=== PATIENT | female | born 1990 | race Caucasian/White ===

== ENCOUNTER 2018-06-23 05:14 | Inpatient (IN) | payer BC ==
[2018-06-23] MEDS: Lactated Ringers 1,000 ML IV SCH ×3 (06:00→07:50)
[2018-06-23] MEDS ORDERED: Sodium Chloride 0.9% 10 ML Syringe FLUSH PRN (06:06)
[2018-06-23] MEDS ORDERED: Citric Acid/Sodium Citrate Solution 30 ML Cup PO ONE (06:06)
[2018-06-23] MEDS ORDERED: ceFAZolin 2 GM in Premix Bag 1 BAG IV ONE (06:06)
[2018-06-23] MEDS ORDERED: Oxytocin/0.9 % Sodium Chloride 30 UNIT/500 ML BAG IV SCH (06:15)
--- NOTE | 2018-06-23 07:27 | PCM.PREANE ---
Preanesthetic Assessment - Anesthesia/Transfusion/Family Hx Anesthesia History: No Prior Anesthesia Family History of Anesthesia Reaction: No Transfusion History: No Prior Transfusion(s) - Review of Systems General: No Symptoms Pulmonary: No Symptoms Cardiovascular: No Symptoms Gastrointestinal: No Symptoms Neurological: No Symptoms Other: Reports: None - Physical Assessment NPO Status Date: 06/22/18 Height: 5 ft Weight: 81.193 kg ASA Class: 2 Mental Status: Alert & Oriented x3 Airway Class: Mallampati = 1 Dentition: Reports: Normal Dentition ROM/Head Extension: Full Lungs: Clear to Auscultation, Normal Respiratory Effort Cardiovascular: Regular Rate, Regular Rhythm - Lab Values: Laboratory Last Values WBC 9.04 K/uL (4.0-11.0) 06/22/18 10:20 RBC 4.15 M/uL (4.30-5.90) L 06/22/18 10:20 Hgb 12.7 g/dL (12.0-16.0) 06/22/18 10:20 Hct 36.8 % (36.0-46.0) 06/22/18 10:20 MCV 88.7 fL (80.0-98.0) 06/22/18 10:20 MCH 30.6 pg (27.0-32.0) 06/22/18 10:20 MCHC 34.5 g/dL (31.0-37.0) 06/22/18 10:20 RDW Std Deviation 45.4 fl (28.0-62.0) 06/22/18 10:20 RDW Coeff of Baldemar 14 % (11.0-15.0) 06/22/18 10:20 Plt Count 223 K/uL (150-400) 06/22/18 10:20 MPV 11.00 fL (7.40-12.00) 06/22/18 10:20 Nucleated RBC % 0.0 /100WBC 06/22/18 10:20 Nucleated RBCs # 0 K/uL 06/22/18 10:20 Blood Type B POSITIVE 06/22/18 10:20 Antibody Screen NEGATIVE 06/22/18 10:20 - Allergies Allergies/Adverse Reactions: Allergies Allergy/AdvReac Type Severity Reaction Status Date / Time No Known Allergies Allergy Verified 06/19/18 10:22 - Blood Blood Available: Yes - Anesthesia Plan Pre-Op Medication Ordered: Antacids - Acknowledgements Anesthesia Type Planned: Spinal Pt an Appropriate Candidate for the Planned Anesthesia: Yes Alternatives and Risks of Anesthesia Discussed w Pt/Guardian: Yes Pt/Guardian Understands and Agrees with Anesthesia Plan: Yes Additional Comments: PMH: term , , breech, pligohydramnios, PCOS, migraine PLAN: spinal with intrathecal duramorph PreAnesthesia Questionnaire - Past Health History Medical/Surgical History: Denies Medical/Surgical History HEENT History: Reports: Other (See Below) Other HEENT History: wears contacts/glasses Gastrointestinal History: Reports: Other (See Below) Other Gastrointestinal History: occasional heartburn with - Past Surgical History Head Surgeries/Procedures: Reports: None GI Surgical History: Reports: None - SUBSTANCE USE Smoking Status *Q: Never Smoker Tobacco Use Within Last Twelve Months: No Second Hand Smoke Exposure: No Recreational Drug Use History: No - HOME MEDS Home Medications: Home Meds Magnesium Oxide 250 mg PO DAILY 06/19/18 [History] PNV95/Ferrous Fumarate/FA [ Vitamin Tablet] 1 tab PO DAILY 06/19/18 [ History] - CURRENT (IN HOUSE) MEDS Current Meds: Current Medications Lactated Ringer's (Ringers, Lactated) 1,000 mls @ 500 mls/hr IV BOLUS [facility] Last Admin: 06/23/18 06:39 Dose: 999 mls/hr Oxytocin/Sodium Chloride (Oxytocin 30 Unit/500 Ml-Ns) 30 unit in 500 mls @ 250 mls/hr IV TITRATE [facility] Sodium Chloride (Saline Flush) 10 ml FLUSH ASDIRECTED PRN PRN Reason: Keep Vein Open Last Admin: 06/23/18 06:39 Dose: 10 ml Discontinued Medications Citric Acid/Sodium Citrate (Bicitra Solution) 30 ml PO ONETIME ONE Stop: 06/23/18 06:07 Last Admin: 06/23/18 07:19 Dose: 30 ml Cefazolin Sodium/Dextrose 2 gm (/ Premix) 50 mls @ 100 mls/hr IV ONETIME ONE Stop: 06/23/18 06:35
[2018-06-23] MEDS ORDERED: Oxytocin 10 Units/1 ML SDV ONE (08:11)
[2018-06-23] MEDS ORDERED: ePHEDrine 50 MG/ML SDV ONE (08:11)
[2018-06-23] MEDS ORDERED: Phenylephrine/Normal Saline 100 MCG/ML 10 ML Syringe ONE (08:11)
[2018-06-23] MEDS ORDERED: Octyl 2-Cyanoacrylate 1 Tube ONE (08:36)
[2018-06-23] MEDS ORDERED: Morphine PF 10 MG/10 ML SDV ONE (08:37)
--- NOTE | 2018-06-23 08:52 | PCM.OPNOTE ---
- General Post-Op/Procedure Note Date of Surgery/Procedure: 06/23/18 Operative Procedure(s): primary low transverse Findings: Liveborn male 01/12 2500 grams, katlin breech, normal uterus, tubes and ovaries. Pre Op Diagnosis: 39 weeks, katlin breech presentation, IVF , desires cord blood collection Post-Op Diagnosis: Same Anesthesia Technique: Spinal Primary Surgeon: Annia Wilson Anesthesia Provider: Christine Curtis Pathology: none Fluid Replacement, Intraop: 1,300 Output, Urine Amount: 700 EBL in mLs: 400 Complications: None Known Condition: Good
[2018-06-23] MEDS ORDERED: Ondansetron 4 MG/2 ML SDV IVPUSH PRN (08:54)
[2018-06-23] MEDS ORDERED: Acetaminophen/oxyCODONE 325-5 MG Tab PO PRN (08:54)
[2018-06-23] MEDS ORDERED: Bisacodyl 10 MG Supp RECTAL PRN (08:54)
[2018-06-23] MEDS ORDERED: Lanolin 100% Cream 7 GM Tube TOP PRN (08:54)
[2018-06-23] MEDS ORDERED: diphenhydrAMINE 50 MG/ML SDV IVPUSH PRN (08:54)
[2018-06-23] MEDS ORDERED: Lactated Ringers 1,000 ML IV SCH (09:00)
[2018-06-23] MEDS: Ketorolac 30 MG/ML SDV IVPUSH SCH ×3 (09:12→21:03)
--- NOTE | 2018-06-23 09:45 | PCM.POSTAN ---
POST ANESTHESIA ASSESSMENT - MENTAL STATUS Mental Status: Alert, Oriented - RESPIRATORY Respiratory Status: Respiratory Rate WNL, Airway Patent, O2 Saturation Stable - CARDIOVASCULAR CV Status: Pulse Rate WNL, Blood Pressure Stable - GASTROINTESTINAL GI Status: No Symptoms - POST OP HYDRATION Hydration Status: Adequate & Stable
[2018-06-23] MEDS: Docusate Sodium 100 MG Cap PO SCH ×2 (11:01→21:02)
--- NOTE | 2018-06-23 13:47 | OR ---
SURGEON: Annia Wilson M.D. DATE OF PROCEDURE: 06/23/2018 PREOPERATIVE DIAGNOSES: 1. 39 weeks' intrauterine . 2. Breech presentation. 3. Declines external version. 4. In vitro . 5. Desires cord blood collection. POSTOPERATIVE DIAGNOSES: 1. 39 weeks' intrauterine . 2. Breech presentation. 3. Declines external version. 4. In vitro . 5. Desires cord blood collection. PROCEDURE: Primary low-transverse section with umbilical cord blood collection for cord blood banking. ANESTHESIA: Spinal. ESTIMATED BLOOD LOSS: 400 mL. FINDINGS: Liveborn male. scores were 9 and 9, weighing 2500 g. Normal-appearing uterus, tubes, and ovaries. COMPLICATIONS: None known. DISPOSITION: Stable to recovery. BRIEF HISTORY: This is a 28-year-old female, G1, P0. She is at 39 weeks' gestation. She has been followed closely over the past month with small for gestational age, borderline oligohydramnios, and breech presentation. Due to the oligohydramnios, she was not a candidate for external version. Fluid improved, but she still declined external version and therefore presents for primary delivery with risks discussed including bleeding, infection, injury to bowel, bladder, blood vessels, ureters, other organs, risk of thromboembolic event, and risk of anesthesia. Understanding all these risks, she does desire to proceed. DESCRIPTION OF PROCEDURE: With the patient in left tilt position, under adequate spinal analgesia, the abdomen was prepped with chlorhexidine and draped in usual fashion for abdominal surgery. SCDs were in place. Pina catheter had been placed and she received 2 g of Ancef IV. After documentation of adequate analgesia, a transverse curvilinear incision was made 2 cm cephalad from the pubic symphysis, carried through subcutaneous tissue to the fascia, which was scored transversely in the midline. The fascial incision was extended using curved Javier scissors. The fascia was elevated from the underlying rectus muscles using curved Javier scissors, and the rectus muscles were in the midline using blunt dissection. The peritoneum was entered bluntly, and the Hero O retractor was placed. The visceroperitoneum over the lower uterine segment was incised to develop an adequate bladder flap. A transverse curvilinear incision was made over the lower uterine segment with a scalpel, and the amniotic cavity was entered with note of very minimal fluid. The incision was extended using blunt dissection. The breech was delivered via the uterine incision. With subsequent delivery of the 's body, the arms were swept across the chest. The head was flexed and delivered without any difficulty. The was bulb suctioned by nose and mouth. Cord was clamped x2 and cut, and the was handed to the nurse in attendance at delivery. The infant was a live- born male, scores 9 and 9, weighing 2500 g. Cord blood was collected for cord ABGs as well as routine cord blood sampling, and the cord was clamped above the site, and the cord blood collection kit was then opened sterilely and needle was inserted. The bag was dropped to the floor, and the cord blood was collected until there was no further blood in the umbilical vein. The needle was removed and covered, and passed off to the nurse for processing of the cord blood. The placenta by that time had released and was removed. The uterus was cleaned with dry laparotomy tape. The cervix was opened with a ring forceps. The uterine incision was closed with a running lock suture of 0 Polysorb, followed by an imbricating layer of 0 Polysorb. The posterior cul-de-sac pericolic gutters were cleaned with a wet laparotomy tape. Tubes and ovaries were inspected and were hemostatic. The uterine incision was inspected and was hemostatic. The Hero O retractor was removed. A final inspection revealed the incision to be completely hemostatic. Therefore, the rectus muscle and peritoneum were loosely approximated in the midline using a running mattress suture of 0 Polysorb. The posterior aspect of the fascia was inspected and was hemostatic. The fascial incision was closed with a running suture of 0 Polysorb. The subcutaneous tissue was irrigated. Any areas of bleeding that were noted were cauterized. The skin was closed with a running subcuticular suture of 3-0 Monocryl. Final sponge, needle, and instrument counts were reported as correct. There were no known complications. Dermabond was placed over the incision prior to dressing. The mother was transferred to recovery in good condition. The infant is in nursery in good condition. CARLEE / SUMA /[id number]
[2018-06-24] MEDS: Ketorolac 30 MG/ML SDV IVPUSH SCH ×2 (02:59→09:22)
--- NOTE | 2018-06-24 05:59 | PCM48HPAN ---
Post Anesthesia Note - EVALUATION WITHIN 48HRS OF ANESTHETIC Vital Signs in Normal Range: Yes Patient Participated in Evaluation: Yes Respiratory Function Stable: Yes Airway Patent: Yes Cardiovascular Function Stable: Yes Hydration Status Stable: Yes Pain Control Satisfactory: Yes Nausea and Vomiting Control Satisfactory: Yes Mental Status Recovered: Yes Resp Rate: 14
--- NOTE | 2018-06-24 08:18 | PCM.PNPP ---
<Татьяна Driver - Last Filed: 06/24/18 08:15> - General Info Date of Service: 06/24/18 Functional Status: Reports: Pain Controlled, Tolerating Diet, Ambulating, Urinating - Review of Systems General: Denies: Fever, Weakness, Fatigue Pulmonary: Denies: Shortness of Breath, Pleuritic Chest Pain, Cough Cardiovascular: Denies: Chest Pain, Palpitations, Dyspnea on Exertion Gastrointestinal: Denies: Abdominal Pain Genitourinary: Denies: Dysuria - General Info Date of Service: 06/24/18 - Patient Data Vital Signs - Most Recent: Last Vital Signs Temp 36.7 C 06/24/18 04:00 Pulse 103 H 06/24/18 06:00 Resp 17 06/24/18 06:00 BP 126/71 06/24/18 04:00 Pulse Ox 95 06/24/18 06:00 Weight - Most Recent: 179 lb I&O - Last 24 Hours: Intake & Output 06/23/18 06/24/18 06/24/18 22:59 06:59 14:59 Intake Total 1732 Output Total 250 2400 Balance 1482 -2400 Lab Results - Last 24 Hours: Laboratory Results - last 24 hr 06/23/18 06/24/18 Range/Units 08:14 05:35 Hgb 10.6 L (12.0-16.0) g/dL Hct 31.2 L (36.0-46.0) % Cord ABG pH 7.243 (7.18-7.38) Cord ABG Base Excess -4 (-10--2) Cord VBG pH 7.275 (7.25-7.45) Cord VBG Base Excess -7 (-10--2) Med Orders - Current: Current Medications Bisacodyl (Dulcolax) 10 mg RECTAL ONETIME PRN PRN Reason: Constipation Diphenhydramine HCl (Benadryl) 25 mg IVPUSH Q6H PRN PRN Reason: Itching or Nausea Docusate Sodium (Colace) 100 mg PO BID [facility]ON[facility] Last Admin: 06/23/18 21:02 Dose: 100 mg Emollient Ointment (Lansinoh Hpa) 0 gm TOP ASDIRECTED PRN PRN Reason: Sore Nipples Lactated Ringer's (Ringers, Lactated) 1,000 mls @ 125 mls/hr IV ASDIRECTED [facility] Last Admin: 06/23/18 12:48 Dose: 125 mls/hr Ibuprofen (Motrin) 800 mg PO Q8H PRN PRN Reason: mild pain or fever Ketorolac Tromethamine (Toradol) 30 mg IVPUSH Q6H [facility] Stop: 06/24/18 09:01 Last Admin: 06/24/18 02:59 Dose: 30 mg Ondansetron HCl (Zofran) 4 mg IVPUSH Q4H PRN PRN Reason: Nausea/Vomiting Oxycodone/Acetaminophen (Percocet 325-5 Mg) 1 tab PO Q4H PRN PRN Reason: Pain (moderate 4-6) Oxycodone/Acetaminophen (Percocet 325-5 Mg) 2 tab PO Q4H PRN PRN Reason: Pain (moderate 4-6) Discontinued Medications Citric Acid/Sodium Citrate (Bicitra Solution) 30 ml PO ONETIME ONE Stop: 06/23/18 06:07 Last Admin: 06/23/18 07:19 Dose: 30 ml Ephedrine Sulfate (Ephedrine Sulfate) Confirm Administered Dose 50 mg .ROUTE .STK-MED ONE Stop: 06/23/18 08:12 Cefazolin Sodium/Dextrose 2 gm (/ Premix) 50 mls @ 100 mls/hr IV ONETIME ONE Stop: 06/23/18 06:35 Lactated Ringer's (Ringers, Lactated) 1,000 mls @ 500 mls/hr IV BOLUS [facility] Last Admin: 06/23/18 07:50 Dose: 999 mls/hr Oxytocin/Sodium Chloride (Oxytocin 30 Unit/500 Ml-Ns) 30 unit in 500 mls @ 250 mls/hr IV TITRATE [facility] Morphine Sulfate (Duramorph Pf) Confirm Administered Dose 10 mg .ROUTE .STK-MED ONE Stop: 06/23/18 08:38 Octyl Cyanoacrylate (Dermabond Advance) Confirm Administered Dose 1 applic .ROUTE .STK-MED ONE Stop: 06/23/18 08:37 Oxytocin (Pitocin) Confirm Administered Dose 30 unit .ROUTE .STK-MED ONE Stop: 06/23/18 08:12 Phenylephrine HCl (Phenylephrine In Ns 100 Mcg/Ml) Confirm Administered Dose 1 mg .ROUTE .STK-MED ONE Stop: 06/23/18 08:12 Sodium Chloride (Saline Flush) 10 ml FLUSH ASDIRECTED PRN PRN Reason: Keep Vein Open Last Admin: 06/23/18 06:39 Dose: 10 ml - Interaction Infant Disposition, : to Nursery Infant Feeding: Breastfed Infant; Nursed Well, Encouraged to Breastfeed Support Person: - Recovery Exam Fundal Tone: Firm Fundal Level: 1 Fingerbreadths Below Umbilicus Fundal Placement: Midline Lochia Amount: Small Lochia Color: Rubra/Red Perineum Description: Intact, Minimal Bruising/Swelling Episiotomy/Laceration: None Bladder Status: Indwelling Catheter in Place Urinary Elimination: Indwelling Catheter - Exam General: Alert, Oriented Neck: Supple Lungs: Clear to Auscultation, Normal Respiratory Effort Cardiovascular: Regular Rate, Regular Rhythm GI/Abdominal Exam: Normal Bowel Sounds, Soft, Non-Tender, No Distention, No Mass Skin: Warm, Dry, Intact - Problem List Review Problem List Initiated/Reviewed/Updated: Yes - Assessment Assessment:: POD #1 s/p PLTCS for Breech. Minimal pain and lochia. Breast feeding well. Aim for discharge home tomorrow. - Plan Plan:: Continue routine post-op cares. Encouraged to shower and ambulate halls. <Cathy King - Last Filed: 06/24/18 09:02> - Patient Data Vital Signs - Most Recent: Last Vital Signs Temp 36.7 C 06/24/18 04:00 Pulse 103 H 06/24/18 06:00 Resp 17 06/24/18 06:00 BP 126/71 06/24/18 04:00 Pulse Ox 95 06/24/18 06:00 I&O - Last 24 Hours: Intake & Output 06/23/18 06/24/18 06/24/18 22:59 06:59 14:59 Intake Total 1732 Output Total 250 2400 Balance 1482 -2400 Lab Results - Last 24 Hours: Laboratory Results - last 24 hr 06/23/18 06/24/18 Range/Units 08:14 05:35 Hgb 10.6 L (12.0-16.0) g/dL Hct 31.2 L (36.0-46.0) % Cord ABG pH 7.243 (7.18-7.38) Cord ABG Base Excess -4 (-10--2) Cord VBG pH 7.275 (7.25-7.45) Cord VBG Base Excess -7 (-10--2) Med Orders - Current: Current Medications Bisacodyl (Dulcolax) 10 mg RECTAL ONETIME PRN PRN Reason: Constipation Diphenhydramine HCl (Benadryl) 25 mg IVPUSH Q6H PRN PRN Reason: Itching or Nausea Docusate Sodium (Colace) 100 mg PO BID [facility] Last Admin: 06/23/18 21:02 Dose: 100 mg Emollient Ointment (Lansinoh Hpa) 0 gm TOP ASDIRECTED PRN PRN Reason: Sore Nipples Lactated Ringer's (Ringers, Lactated) 1,000 mls @ 125 mls/hr IV ASDIRECTED [facility] Last Admin: 06/23/18 12:48 Dose: 125 mls/hr Ibuprofen (Motrin) 800 mg PO Q8H PRN PRN Reason: mild pain or fever Ondansetron HCl (Zofran) 4 mg IVPUSH Q4H PRN PRN Reason: Nausea/Vomiting Oxycodone/Acetaminophen (Percocet 325-5 Mg) 1 tab PO Q4H PRN PRN Reason: Pain (moderate 4-6) Oxycodone/Acetaminophen (Percocet 325-5 Mg) 2 tab PO Q4H PRN PRN Reason: Pain (moderate 4-6) Discontinued Medications Citric Acid/Sodium Citrate (Bicitra Solution) 30 ml PO ONETIME ONE Stop: 06/23/18 06:07 Last Admin: 06/23/18 07:19 Dose: 30 ml Ephedrine Sulfate (Ephedrine Sulfate) Confirm Administered Dose 50 mg .ROUTE .STK-MED ONE Stop: 06/23/18 08:12 Cefazolin Sodium/Dextrose 2 gm (/ Premix) 50 mls @ 100 mls/hr IV ONETIME ONE Stop: 06/23/18 06:35 Lactated Ringer's (Ringers, Lactated) 1,000 mls @ 500 mls/hr IV BOLUS [facility] Last Admin: 06/23/18 07:50 Dose: 999 mls/hr Oxytocin/Sodium Chloride (Oxytocin 30 Unit/500 Ml-Ns) 30 unit in 500 mls @ 250 mls/hr IV TITRATE [facility] Ketorolac Tromethamine (Toradol) 30 mg IVPUSH Q6H [facility] Stop: 06/24/18 09:01 Last Admin: 06/24/18 02:59 Dose: 30 mg Morphine Sulfate (Duramorph Pf) Confirm Administered Dose 10 mg .ROUTE .STK-MED ONE Stop: 06/23/18 08:38 Octyl Cyanoacrylate (Dermabond Advance) Confirm Administered Dose 1 applic .ROUTE .STK-MED ONE Stop: 06/23/18 08:37 Oxytocin (Pitocin) Confirm Administered Dose 30 unit .ROUTE .STK-MED ONE Stop: 06/23/18 08:12 Phenylephrine HCl (Phenylephrine In Ns 100 Mcg/Ml) Confirm Administered Dose 1 mg .ROUTE .STK-MED ONE Stop: 06/23/18 08:12 Sodium Chloride (Saline Flush) 10 ml FLUSH ASDIRECTED PRN PRN Reason: Keep Vein Open Last Admin: 06/23/18 06:39 Dose: 10 ml - Assessment Assessment:: Patient seen independently- agree with above - Plan Plan:: Aim for discharge tomorrow
[2018-06-24] MEDS: Docusate Sodium 100 MG Cap PO SCH ×2 (09:23→20:54)
[2018-06-24] MEDS: Ibuprofen 800 MG Tab PO PRN (16:53)
[2018-06-24] MEDS: Acetaminophen/oxyCODONE 325-5 MG Tab PO PRN (20:53)
[2018-06-25] MEDS: Ibuprofen 800 MG Tab PO PRN (02:02)
[2018-06-25] MEDS: Acetaminophen/oxyCODONE 325-5 MG Tab PO PRN (08:39)
[2018-06-25] MEDS: Docusate Sodium 100 MG Cap PO SCH (08:39)
--- NOTE | 2018-06-25 08:42 | PCM.PNPP ---
- General Info Date of Service: 06/25/18 Functional Status: Reports: Pain Controlled, Tolerating Diet, Ambulating, Urinating - Review of Systems General: Reports: No Symptoms HEENT: Reports: No Symptoms Pulmonary: Reports: No Symptoms Cardiovascular: Reports: No Symptoms Gastrointestinal: Reports: No Symptoms Genitourinary: Reports: No Symptoms Musculoskeletal: Reports: No Symptoms Skin: Reports: No Symptoms Neurological: Reports: No Symptoms Psychiatric: Reports: No Symptoms - Patient Data Vital Signs - Most Recent: Last Vital Signs Temp 37.1 C 06/25/18 04:10 Pulse 96 06/25/18 04:10 Resp 16 06/25/18 04:10 BP 131/91 H 06/25/18 04:10 Pulse Ox 97 06/25/18 04:10 Weight - Most Recent: 81.193 kg Med Orders - Current: Current Medications Bisacodyl (Dulcolax) 10 mg RECTAL ONETIME PRN PRN Reason: Constipation Diphenhydramine HCl (Benadryl) 25 mg IVPUSH Q6H PRN PRN Reason: Itching or Nausea Docusate Sodium (Colace) 100 mg PO BID [facility] Last Admin: 06/24/18 20:54 Dose: 100 mg Emollient Ointment (Lansinoh Hpa) 0 gm TOP ASDIRECTED PRN PRN Reason: Sore Nipples Lactated Ringer's (Ringers, Lactated) 1,000 mls @ 125 mls/hr IV ASDIRECTED [facility] Last Admin: 06/23/18 12:48 Dose: 125 mls/hr Ibuprofen (Motrin) 800 mg PO Q8H PRN PRN Reason: mild pain or fever Last Admin: 06/25/18 02:02 Dose: 800 mg Ondansetron HCl (Zofran) 4 mg IVPUSH Q4H PRN PRN Reason: Nausea/Vomiting Oxycodone/Acetaminophen (Percocet 325-5 Mg) 1 tab PO Q4H PRN PRN Reason: Pain (moderate 4-6) Last Admin: 06/24/18 20:53 Dose: 1 tab Oxycodone/Acetaminophen (Percocet 325-5 Mg) 2 tab PO Q4H PRN PRN Reason: Pain (moderate 4-6) Discontinued Medications Citric Acid/Sodium Citrate (Bicitra Solution) 30 ml PO ONETIME ONE Stop: 06/23/18 06:07 Last Admin: 06/23/18 07:19 Dose: 30 ml Ephedrine Sulfate (Ephedrine Sulfate) Confirm Administered Dose 50 mg .ROUTE .STK-MED ONE Stop: 06/23/18 08:12 Cefazolin Sodium/Dextrose 2 gm (/ Premix) 50 mls @ 100 mls/hr IV ONETIME ONE Stop: 06/23/18 06:35 Lactated Ringer's (Ringers, Lactated) 1,000 mls @ 500 mls/hr IV BOLUS [facility] Last Admin: 06/23/18 07:50 Dose: 999 mls/hr Oxytocin/Sodium Chloride (Oxytocin 30 Unit/500 Ml-Ns) 30 unit in 500 mls @ 250 mls/hr IV TITRATE [facility] Ketorolac Tromethamine (Toradol) 30 mg IVPUSH Q6H [facility] Stop: 06/24/18 09:01 Last Admin: 06/24/18 09:22 Dose: 30 mg Morphine Sulfate (Duramorph Pf) Confirm Administered Dose 10 mg .ROUTE .STK-MED ONE Stop: 06/23/18 08:38 Octyl Cyanoacrylate (Dermabond Advance) Confirm Administered Dose 1 applic .ROUTE .STK-MED ONE Stop: 06/23/18 08:37 Oxytocin (Pitocin) Confirm Administered Dose 30 unit .ROUTE .STK-MED ONE Stop: 06/23/18 08:12 Phenylephrine HCl (Phenylephrine In Ns 100 Mcg/Ml) Confirm Administered Dose 1 mg .ROUTE .STK-MED ONE Stop: 06/23/18 08:12 Sodium Chloride (Saline Flush) 10 ml FLUSH ASDIRECTED PRN PRN Reason: Keep Vein Open Last Admin: 06/23/18 06:39 Dose: 10 ml - Interaction Disposition, : to Nursery Infant Feeding: Breastfed ; Nursed Well, Encouraged to Breastfeed Support Person: - Recovery Exam Fundal Tone: Firm Fundal Level: 1 Fingerbreadths Below Umbilicus Fundal Placement: Midline Lochia Amount: Scant Lochia Color: Rubra/Red Perineum Description: Intact, Minimal Bruising/Swelling Episiotomy/Laceration: None Bladder Status: Voiding Urinary Elimination: Voided - Exam General: Alert, Oriented GI/Abdominal Exam: Soft, Non-Tender Extremities: Normal Inspection, Non-Tender, Normal Capillary Refill. No: No Pedal Edema (trace) Skin: Warm, Dry, Intact Wound/Incisions: Healing Well Neurological: No New Focal Deficit - Problem List & Annotations (1) Breech, katlin SNOMED Code(s): 42118042 Code(s): O32.1XX0 - MATERNAL CARE FOR BREECH PRESENTATION, UNSP Status: Acute Current Visit: Yes (2) Oligohydramnios SNOMED Code(s): 72945062 Code(s): O41.00X0 - OLIGOHYDRAMNIOS, UNSP TRIMESTER, NOT APPLICABLE OR UNSP Status: Acute Current Visit: Yes - Problem List Review Problem List Initiated/Reviewed/Updated: Yes - My Orders Last 24 Hours: My Active Orders 06/25/ 08:38 Ready for Discharge [RC] PER UNIT ROUTINE - Assessment Assessment:: POD#2 after primary , due to breech with oligohydramnios. Stable, minimal lochia, pain well controlled tolerating regular diet. Would like to go home today. - Plan Plan:: Discharge instructions reviewed, dismiss to home later today. She discharge orders
== END 2018-06-25 13:00 | disposition home or self-care (01) | DRG 540 ==
LOC: MW.OB 05:14
PROVIDERS: ADMIT Obstetrics & Gynecology; ATTEND Obstetrics & Gynecology
PROC: 10D00Z1 Extraction of Products of Conception, Low, Open Approach (ICD-10-PCS; principal; 2018-06-23)
PROC: 6A550ZT Pheresis of Cord Blood Stem Cells, Single (ICD-10-PCS; principal; 2018-06-23)
DX: O32.1XX0 Maternal care for breech presentation, not applicable or unspecified (principal); O41.03X0 Oligohydramnios, third trimester, not applicable or unspecified; O99.284 Endocrine, nutritional and metabolic diseases complicating childbirth; E28.2 Polycystic ovarian syndrome; O99.354 Diseases of the nervous system complicating childbirth; Z37.0 Single live birth; G43.909 Migraine, unspecified, not intractable, without status migrainosus; Z3A.39 39 weeks gestation of pregnancy
CPT/HCPCS: 36415; 59025; 82803; 85014; 85018; 85027; 86850; 86900; 86901; A9270-GY; J1885; J2270; J2370; J2590; J7120